=== PATIENT | male | born 1965 ===

== ENCOUNTER → 2021-09-21 | Outpatient (CLI) | payer OTHER ==
[~2021-09-21] MED LIST: AMBIEN10 MG PO; CARVEDILOL12.5 MG PO; CLONAZEPAM0.5 MG PO; DIOVAN320 MG PO; HYDROCHLOROTH12.5 MG PO; LIPIT PO; METFORM PO; NORVASC5 MG PO; PROSAC PO; SYNTHROID100 MCG; SYNTHROID100 MCG PO; SYNTHROID112 MCG PO; TRILIPIX135 MG PO; VITAMIN D PO
== END | disposition home or self-care (01) ==
LOC: LAB 08:00 → ADM 11:30 → CIR.AMB 09-26 11:30 → EDSTATUS 10-31 11:30
PROVIDERS: ATTEND Surgery
DX: U07.1 COVID-19 (principal); K80.20 Calculus of gallbladder without cholecystitis without obstruction; I10 Essential (primary) hypertension

== ENCOUNTER 2021-10-31 06:05 | Day surgery (SDC) | payer OTHER ==
[2021-10-31] MEDS ORDERED: PERCOCET 5-3251 EACH PO (12:52)
== END 2021-10-31 16:23 | disposition home or self-care (01) ==
LOC: CIR.AMB 06:05
PROVIDERS: ATTEND Surgery
DX: K80.10 Calculus of gallbladder with chronic cholecystitis without obstruction (principal); I10 Essential (primary) hypertension; E78.5 Hyperlipidemia, unspecified; Z86.16 Personal history of COVID-19; E03.9 Hypothyroidism, unspecified; R42 Dizziness and giddiness; K42.0 Umbilical hernia with obstruction, without gangrene